=== PATIENT | female | born 1990 | race Asian ===

== ENCOUNTER 2017-11-28 13:37 | Emergency (ER) | payer OTHER ==
[2017-11-28 13:50] VITALS: BP 107/71
--- NOTE | 2017-11-28 14:07 | UC ---
Hand/Wrist HPI - HPI Summary HPI Summary: Pt presents with left wrist pain. She tells me that last night she was ice skating and fell - her left wrist bent backwards. Did not have pain immediately , but woke up this morning with pain. Has not taken anything yet today for this - wants to make sure it is not broken. Denies numbness or tingling or hx of wrist issue. - History Of Current Complaint Chief Complaint: UCUpperExtremity Stated Complaint: WRIST INJURY Time Seen by Provider: 11/28/17 13:58 Hx Obtained From: Patient Hx Last Menstrual Period: 11/03/17 Onset/Duration: Sudden Onset Severity Initially: Moderate Severity Currently: Moderate Pain Intensity: 7 Pain Scale Used: 0-10 Numeric Character Of Pain: Dull, Stiffness Aggravating Factor(s): Movement - Allergies/Home Medications Allergies/Adverse Reactions: Allergies Allergy/AdvReac Type Severity Reaction Status Date / Time No Known Allergies Allergy Verified 11/28/17 13:50 Home Medications: Home Medications NK [No Home Medications Reported] 11/28/17 [History Confirmed 11/28/17] PMH/Surg Hx/FS Hx/Imm Hx Previously Healthy: Yes - Surgical History Surgical History: None - Family History Known Family History: Positive: None - Social History Occupation: Student Lives: Alone Alcohol Use: Occasionally Substance Use Type: None Smoking Status (MU): Never Smoked Tobacco Review of Systems Constitutional: Negative Skin: Negative Respiratory: Negative Cardiovascular: Negative Musculoskeletal: Other: - Left wrist pain Neurological: Negative Psychological: Negative All Other Systems Reviewed And Are Negative: Yes Physical Exam Triage Information Reviewed: Yes Appearance: Well-Appearing, No Pain Distress, Well-Nourished Vital Signs: Initial Vital Signs Temp 97.3 F 11/28/17 13:47 Pulse 71 11/28/17 13:47 Resp 12 11/28/17 13:47 BP 107/71 11/28/17 13:47 Pulse Ox 100 11/28/17 13:47 Vital Signs Reviewed: Yes Neck: Positive: Supple, Nontender Respiratory: Positive: Lungs clear, Normal breath sounds, No respiratory distress Cardiovascular: Positive: RRR, No Murmur, Pulses Normal - Left radial and ulnar Musculoskeletal: Positive: Strength Intact, ROM Limited @ - Left thumb opposition, Edema @ - Left wrist - mild, Other: - Left thumb mild snuffbox tenderness and pain with flexion/extension of thumb. No obvious bony deformity or ecchymosis. Neurological: Positive: Alert, Other: - Sensations intact left hand and all fingers Psychological: Positive: Age Appropriate Behavior Skin: Negative: rashes, significant lesion(s) Hand/Wrist Course/Dx - Course Course Of Treatment: Wirst XR: IMPRESSION: NO EVIDENCE FOR FRACTURE. Suspect left wrist sprain - will place her in a thumb spica splint and have her f/u with ortho if her symptoms persist. - Differential Dx/Diagnosis Provider Diagnoses: Left wrist sprain Discharge - Discharge Plan Condition: Stable Disposition: HOME Patient Education Materials: [employer] (ED) Referrals: [facility] - Papito EVANS [Primary Care Provider] - Beata Alvares MD [Medical Doctor] - If Needed Additional Instructions: If you develop a fever, shortness of breath, chest pain, new or worsening symptoms - please call your PCP or go to the ED. 1) Please use the thumb spica splint as much as possible over the next 5-7 days. 2) Ibuprofen 600mg every 6-8 hours as needed for pain 3) If your symptoms worsen or persist - please call orthopedics at the number below to schedule a follow up appointment.
--- NOTE | 2017-11-28 14:28 | RAD ---
INDICATION: Left wrist injury. TECHNIQUE: 3 views of the left wrist were obtained. FINDINGS: The bones are in normal alignment. No fracture is seen. Joint spaces appear maintained. IMPRESSION: NO EVIDENCE FOR FRACTURE, IF THE PATIENT'S SYMPTOMS PERSIST RECOMMEND FOLLOW-UP IMAGING.
== END 2017-11-28 14:57 | disposition home or self-care (01) ==
LOC: UCEAST 13:37
DX: S63.502A Unspecified sprain of left wrist, initial encounter (principal); V00.211A Fall from ice-skates, initial encounter; Y93.21 Activity, ice skating; Y92.9 Unspecified place or not applicable
CPT/HCPCS: 99201; G0463